=== PATIENT | male | born 1995 | race Caucasian/White ===

== ENCOUNTER → 2022-10-19 | Outpatient (CLI) | payer BC ==
--- NOTE | 2022-10-20 06:59 | CA ---
Transthoracic Echo Report Name: Wayne Harrell Age: 27 Gender: M : 1995 Exam Date: 10/19/2022 08:41 Exam Location: [facility] Ht (in): 66 Wt (lb): 180 Ordering Physician: Nicanor Oliver MD Attending/Referring Phys: [id number], Benito Greeting Card Writer Alda Price, [facility] Procedure CPT: Indications: R94.31 R03.0 Cardiac Hx: Technical Quality: Good Contrast 1: Total Dose (mL): Contrast 2: Total Dose (mL): MEASUREMENTS (Male / Female) Normal Values 2D ECHO LV Diastolic Diameter PLAX 4.0 cm 4.2 - 5.9 / 3.9 - 5.3 cm LV Systolic Diameter PLAX 2.1 cm IVS Diastolic Thickness 1.1 cm 0.6 - 1.0 / 0.6 - 0.9 cm LVPW Diastolic Thickness 1.0 cm 0.6 - 1.0 / 0.6 - 0.9 cm LV Relative Wall Thickness 0.5 RV Internal Dim ED PLAX 3.3 cm LA Volume 47.6 cm??? 18 - 58 / 22 - 52 cm??? M-MODE Aortic Root Diameter MM 2.7 cm LA Systolic Diameter MM 3.9 cm LA Ao Ratio MM 1.4 AV Cusp Separation MM 2.4 cm DOPPLER AV Peak Velocity 123.9 cm/s AV Peak Gradient 6.1 mmHg AV Mean Velocity 91.3 cm/s AV Mean Gradient 3.6 mmHg AV Velocity Time Integral 27.8 cm LVOT Peak Velocity 100.8 cm/s LVOT Peak Gradient 4.1 mmHg LVOT Velocity Time Integral 23.0 cm MV Area PHT 4.0 cm??? Mitral E Point Velocity 85.8 cm/s Mitral A Point Velocity 56.0 cm/s Mitral E to A Ratio 1.5 MV Deceleration Time 190.9 ms MV E' Velocity 12.4 cm/s Mitral E to MV E' Ratio 6.9 TR Peak Velocity 239.4 cm/s TR Peak Gradient 22.9 mmHg Right Ventricular Systolic Press 26.3 mmHg FINDINGS Left Ventricle Normal Left ventricular size, wall thickness, systolic function with no obvious regional wall motion abnormalities. Normal Left ventricular diastolic filling pattern. Left ventricular ejection fraction is estimated at 55-60 %. Right Ventricle Normal right ventricular size and function. Right ventricular systolic pressure within normal limits. Right Atrium Normal right atrial size. Left Atrium Normal left atrial size. Mitral Valve Structurally normal mitral valve. No evidence for mitral valve prolapse. No mitral stenosis. Trace to mild mitral regurgitation. Aortic Valve Trileaflet aortic valve. No aortic valve stenosis or regurgitation. Tricuspid Valve Structurally normal tricuspid valve. Trace to mild tricuspid regurgitation. Pulmonic Valve Trace pulmonic regurgitation. Pericardium No pericardial effusion. Aorta Normal size aortic root and proximal ascending aorta. CONCLUSIONS Normal LV systolic function Normal intracardiac valves No pericardial effusion Previewed by: Dr. Aakash Araiza MD (Electronically Signed) Final Date: 20 October 2022 06:58
--- NOTE | 2022-10-20 14:39 | CA ---
Exercise Stress Test Report Name: Wayne Harrell Exam Date: 10/19/2022 09:07 Exam Location: [facility] Ht (in): 66 Wt (lb): 182 BSA: 1.92 Ordering Phys: Geovany Oliver MD Referring Phys: GEOVANY OLIVER,, Technologist: Rafita Doe Age: 27 Gender: M : 1995 Procedure CPT: Indications: R03.0 ICD-10 Codes: Patient History: Abnormal EKG Medications: Meds past 24 hrs: Pretest Chest Pain: STRESS TEST Juan Protocol Exercise Duration (min:sec): 12:[address] Depressions (mm): Angina Score: Reed Score: Resting HR (bpm): 82 Peak HR (bpm): 182 Resting BP (mmHg): 140 / 99 Peak BP (mmHg): 181 / 77 MPHR: 194 Target HR: 165 % MPHR: 94 METS: 12.1 Total Dose: Peak Dose: Atropine: Double Product: 54415 BP Response: Stress Termination: Reached target heart rate Stress Symptoms: No chest pain or symptoms Stress Summary: ECG ANALYSIS Resting ECG: Stress ECG: CONCLUSIONS Excellent exercise tolerance Normal EKG in response to exercise Dr. Aakash Araiza MD (Electronically Signed) Final Date: 20 October 2022 14:38
== END | disposition home or self-care (01) ==
LOC: RADECHMAIN 08:25
PROVIDERS: ATTEND Family Medicine
DX: R94.31 Abnormal electrocardiogram [ECG] [EKG] (principal); R03.0 Elevated blood-pressure reading, without diagnosis of hypertension; R07.9 Chest pain, unspecified
CPT/HCPCS: 93017; 93306

== ENCOUNTER → 2023-10-20 | Outpatient (CLI) | payer BC ==
--- NOTE | 2023-10-20 14:28 | XR ---
EXAMINATION TYPE: XR chest 2V DATE OF EXAM: 10/20/2023 COMPARISON: None HISTORY: 28-year-old male J20.9, acute bronchitis TECHNIQUE: Frontal and lateral views FINDINGS: The cardiomediastinal silhouette, aorta, and pulmonary vasculature are within normal limits. Lungs an d pleural spaces are clear. IMPRESSION: No acute cardiopulmonary process.
== END | disposition home or self-care (01) ==
LOC: RADXRMAIN 12:47
PROVIDERS: ATTEND Family Medicine
DX: J20.9 Acute bronchitis, unspecified (principal)
CPT/HCPCS: 71046